=== PATIENT | female | born 1960 | race Caucasian/White ===

== ENCOUNTER 2020-03-23 17:30 | Inpatient (IN) | payer BC ==
--- NOTE | 2020-03-23 18:16 | PDOC ---
History of Present Illness - General Chief Complaint: Chest Pain Stated Complaint: CHEST PAIN/SOB/WEAKNESS/APPETITE LOSS Past History - Medical History Allergies/Adverse Reactions: Allergies Allergy/AdvReac Type Severity Reaction Status Date / Time No Known Allergies Allergy Verified 03/23/20 18:10 - Reproductive History Is Patient Now?: No - Psycho-Social/Smoking History Smoking History: Never smoked Information on smoking cessation initiated: No - Substance Abuse Hx (Audit-C & DAST Scrn) How often the patient has a drink containing alcohol: Never Score: In Men: 4 or > Positive; In Women: 3 or > Positive: 0 Screen Result (Pos requires Nsg. Audit-10AR): Negative In the last yr the pt used illegal drug/Rx for NonMed reason: No Score: Yes response is considered Positive: 0 Screen Result (Positive result requires Nsg. DAST-10): Negative *Physical Exam - Vital Signs Last Vital Signs Temp Pulse Resp BP Pulse Ox 98.8 F 90 17 108/69 96 03/23/20 17:40 03/23/20 17:40 03/23/20 17:40 03/23/20 17:40 03/23/20 17:40 ED Treatment Course - LABORATORY CBC & Chemistry Diagram: 03/23/20 20:06 03/23/20 20:06 - RADIOLOGY Radiology Studies Ordered: Category Date Time Status CHEST X-RAY PORTABLE* [RAD] Stat Radiology 03/23/20 17:57 Ordered Medical Decision Making - Medical Decision Making 03/23/20 18:14 HPI: 59yo F hx breast CA (in remission, s/p mastectomy and chemotherapy in 2002), pleural effusion 2/2 acute and chronic lung infections (s/p thoracentesis in 2018), L calf DVT (during , residual chronic swelling), PE (after long flight), not on blood thinners, and osteoporosis sent by PCP Dr Owens for fever, SOB, and CP, concerning for COVID. Pt c/o 7-10 days subjective fever, chills, SOB, pleuritic burning type substernal/L-sided nonradiating nonexertiona l CP, generalized weakness, fatigue, productive cough, myalgias, and headache. Fever temporarily relieved with tylenol and ibuprofen, last med taken was tylenol at 0600 today. Pt's family member [place] prescribed her Azithromycin (on day 6, 250), zinc, and multivitamins (vit B complex, C, D, and E). Denies travel, sick contacts, covid testing, long trips, new leg swelling or pain, numbness/tingling, focal weakness, vision changes, dizziness, abdominal pain, N/V, D/C, hx lung problems, diaphoresis, sore throat. PCP - Shad Owens (1st visit today) Layo Rasmussen - [phone] ROS: Constitutional: Positive for chills, fever, fatigue. Negative for diaphoresis. HENT: Negative for sore throat, rhinorrhea, congestion. Eyes: Negative for visual disturbance. Respiratory: Positive for shortness of breath, cough. Negative for wheezing. Cardiovascular: Positive for chest pain, chronic L leg swelling. Negative for palpitations. Gastrointestinal: Negative for abdominal pain, blood in stool, constipation, diarrhea, nausea, and vomiting. Genitourinary: Negative for dysuria, flank pain, and hematuria. Musculoskeletal: Positive for myalgias. Negative for back pain, and neck pain. Skin: Negative for rash. Neurological: Positive for headache. Negative for light-headedness, dizziness, vertigo, syncope, weakness, numbness. Psychiatric/Behavioral: Negative for behavioral problems and confusion. PE: Gen: Alert, NAD, comfortable-appearing. HEENT: PERRL, EOMI, MMM, NCAT. No conjunctival pallor. Sclera are non-icteric. CV: Regular rate and rhythm. No murmurs, rubs, or gallops. PULM: No resp distress. CTAB, no wheezes, rales, or rhonchi. Coarse cough. ABD: soft, NT/ND, no rebound tenderness or guarding, no CVA tenderness. BACK: No TTP of c/t/l-spine. No step-offs or deformities. MSK: No bony deformities. 2+ pulses in all extremities. NEURO: AAOx3. PERRL. No gross CN deficits. Strength and sensation grossly intact throughout. EXTREMITIES: No cyanosis. No clubbing. No edema. No calf tenderness. L calf>R calf (chronic per pt). PSYCH: Normal mood and thought pattern. SKIN: Warm and dry. Normal capillary refill. No rashes. No jaundice. MDM: 59yo F hx breast CA (in remission, s/p mastectomy and chemotherapy in 2002), pleural effusion 2/2 acute and chronic lung infections (s/p thoracentesis in 2019), L calf DVT (during , residual chronic swelling), PE (after long flight), not on blood thinners, and osteoporosis sent by PCP Dr Owens for fever, SOB, and CP, concerning for COVID. Hemodynamically stable, afebrile, lungs CTAB with coarse cough. Ddx: COVID, PE, ACS/IA, arrhythmia, viral URI, COPD, pancreatitis, thyroid pathology, UTI, infection, metabolic derangement, anemia -EKG: NSR, 76bpm, normal axis, normal intervals, no e/o acute ischemia -CXR: no acute pathology -CBC,CMP,Mg,Phos,Cardiac profile,Inflammatory markers,TSH, Lipase, UA/UC -Albuterol MDI x1 -Dispo: pending workup and reassessment, admit Shad Owens at bedside: admit under him 03/23/20 21:16 -prednisone -IVF 03/23/20 22:37 Updated/signed out to Dr Owens on phone. CTA reviewed and spoke with Dr Aranda: no CT e/o PE; b/l pulmonary infiltrates suspicious for COVID Discharge - Discharge Information Problems reviewed: Yes Clinical Impression/Diagnosis: SOB (shortness of breath), Fever, Chest pain, Suspected COVID-19 virus infection Condition: Stable - Admission Yes - Follow up/Referral - Patient Discharge Instructions - Post Discharge Activity
--- NOTE | 2020-03-23 18:52 | PDOC ---
Documentation entered by Vicki Lerma SCRIBE, acting as scribe for Enriqueta Drake DO. Enriqueta Drake DO: This documentation has been prepared by the Florentin leblanc Brenda, SCRIBE, under my direction and personally reviewed by me in its entirety. I confirm that the documentation accurately reflects all work, treatment, procedures, and medical decision making performed by me. Attending Attestation - Resident Resident Name: DeepalirobMildred - ED Attending Attestation I have performed the following: I have examined & evaluated the patient, The case was reviewed & discussed with the resident, I agree w/resident's findings & plan, Exceptions are as noted - HPI HPI: 03/23/20 18:23 The patient is a 59 year old female with a significant PMH of Breast CA, osteoporosis, PE and DVT who presents to the emergency department with The patient denies chest pain, shortness of breath, headache and dizziness. Denies fever, chills, nausea, vomiting, diarrhea and constipation. Denies dysuria, frequency, urgency and hematuria. Allergies: NKA Past surgical history: Social history: No reported hx of tobacco use, alcohol use or illicit drug use. PCP: Shad Owens - Physicial Exam PE: 03/23/20 18:32 GENERAL: Awake, alert, and fully oriented, in no acute distress NECK: Normal ROM, supple, no lymphadenopathy, JVD, or masses LUNGS: (+) Mildly diminshed lung sounds in right base. (+)Bronchospastic cough. No wheezes, and no crackles HEART: Regular rate and rhythm, normal S1 and S2, no murmurs, rubs or gallops ABDOMEN: Soft, nontender, normoactive bowel sounds. No guarding, no rebound. No masses EXTREMITIES: (+) Edema in bilateral lower extremities, non pitting. Varicose veins present. Normal range of motion. No clubbing or cyanosis. No cords, erythema, or tenderness NEUROLOGICAL: Cranial nerves II through XII grossly intact. Normal speech. SKIN: Warm, Dry, normal turgor, no rashes or lesions noted. - Medical Decision Making 03/23/20 18:47 a/p: 59yo female with 8-10 days of cough, cp, sob -pt has completed a course of azithro prescribed by her bother in [place] and then started another course of azithro yesterday -pt c/o chest burning when she breathes, sob, cough - nonproductive -pt states subjective fevers x 10 days -sent for eval by Dr. Shad Owens -will send labs, covid biomarkers, cxr, ekg -hx of PE, DVT both provoked -no recent travel -c/o suero, body aches -concern for covid 19 vs pna vs pleural effusion -will monitor, pt will need admission 03/23/20 18:51 Dr. Owens at the bedside and states he accepts pt to service 03/23/20 21:14 elevated dimer and inflamm markers -suspect covid, but given hx of dvt and pe and increased risk of microthrombi with covid will send for cta 03/23/20 23:35 cta neg for pe, but concerning for covid 19 pneumonitis Heart Score/ECG Review - ECG Intrepretation Comment:: 03/23/20 19:10 sinus at 72, nl axis, nl interval, no acute st/t wave findings Discharge - Discharge Information Problems reviewed: Yes Clinical Impression/Diagnosis: SOB (shortness of breath), Fever, Chest pain, Suspected COVID-19 virus infection Condition: Guarded - Admission Yes - Follow up/Referral - Patient Discharge Instructions - Post Discharge Activity
[2020-03-23] MEDS ORDERED: ALBUTEROL SO4 HFA INHALER IH ONE ×2 (19:30→20:58)
[2020-03-23 20:14] LABS: BASO % 0.2 % (0-2.0); EOS % 0.1 % (0-4.5); HEMATOCRIT 35.5 % (32.4-45.2); HEMOGLOBIN 12.4 GM/dL (10.7-15.3); LYMPH % 19.5 % (8-40); MCH 30.5 pg (25.7-33.7); MEAN CELL VOLUME 87.3 fl (80-96); MEAN PLT VOLUME 8.2 fl (7.5-11.1); MONO % 8.5 % (3.8-10.2); NEUT % 71.7 % (42.8-82.8); PLATELET COUNT 225 K/MM3 (134-434); RBC 4.06 M/mm3 (3.60-5.2); RDW 13.5 % (11.6-15.6); WHITE BLOOD COUNT 3.9 K/mm3 (4.0-10.0)
[2020-03-23 21:03] LABS: ALK PHOS 62 U/L (45-117); ANION GAP 10 MMOL/L (8-16); BILIRUBIN,TOTAL 0.5 mg/dL (0.2-1); BLOOD UREA NITROGEN 9.8 mg/dL (7-18); CALCIUM 9.2 mg/dL (8.5-10.1); CHLORIDE 103 mmol/L (98-107); CO2 24 mmol/L (21-32); CREATININE 0.8 mg/dL (0.55-1.3); GLUCOSE,RANDOM 92 mg/dL (74-106); LDH 295 U/L (84-246); LIPASE 168 U/L (73-393); MAGNESIUM 2.4 mg/dL (1.8-2.4); SGOT/AST 29 U/L (15-37); SGPT/ALT 22 U/L (13-61); SODIUM 137 mmol/L (136-145); TOT PROT 7.9 g/dl (6.4-8.2)
[2020-03-23] MEDS ORDERED: predniSONE 20 MG TABLET (UD) PO ONE (21:14)
[2020-03-23] MEDS ORDERED: SODIUM CHLORIDE 0.9% 500 ML INFUS.BAG IV ONE (21:15)
[2020-03-23] MEDS ORDERED: SODIUM CHLORIDE 1,000 ML IV SCH (21:30)
--- NOTE | 2020-03-23 22:03 | HP ---
Admitting History and Physical - Admission Chief Complaint: pt c/o cogh sob 8 days tx renaldo rubi iftikhar in [place] 8 days ago pt still c/o sob and body aches cough adsmited ? covid? d dimer elevated ct chest will be ordered. vss? no temp but wbc down cxr ?? rll infiltrate History Source: Patient Limitations to Obtaining History: No Limitations - Past Medical History Pulmonary: Yes: Other (h/o pe) ...: No - Past Surgical History Past Surgical History: Yes: None (lt brest ca withy mastectomy recontrutive sx) - Smoking History Smoking history: Never smoked - Alcohol/Substance Use Hx Alcohol Use: No History of Substance Use: reports: None - Social History Usual Living Arrangement: Yes: With Child Do you think of yourself as: Straight/Heterosexual History of Recent Travel: No Home Medications - Allergies Allergies/Adverse Reactions: Allergies Allergy/AdvReac Type Severity Reaction Status Date / Time No Known Allergies Allergy Verified 03/23/20 18:10 Family Medical History Family History: Unremarkable Review of Systems - Review of Systems Constitutional: reports: Malaise, Other (body aches sob cough) Eyes: denies: No Symptoms HENT: reports: No Symptoms Neck: reports: No Symptoms Cardiovascular: reports: No Symptoms Respiratory: reports: Cough, SOB on Exertion Gastrointestinal: reports: No Symptoms Genitourinary: reports: No Symptoms Breasts: reports: No Symptoms Reported Musculoskeletal: reports: No Symptoms Integumentary: reports: No Symptoms Neurological: reports: No Symptoms Endocrine: reports: No Symptoms Hematology/Lymphatic: reports: No Symptoms Psychiatric: reports: No Symptoms Physical Examination Vital Signs: Vital Signs Temperature 98.8 F 03/23/20 17:40 Pulse Rate 106 H 03/23/20 18:40 Respiratory Rate 17 03/23/20 17:40 Blood Pressure 108/69 03/23/20 17:40 O2 Sat by Pulse Oximetry (%) 95 03/23/20 18:40 Constitutional: Yes: Calm Eyes: Yes: WNL HENT: Yes: WNL Neck: Yes: WNL Cardiovascular: Yes: WNL Respiratory: Yes: Cough Gastrointestinal: Yes: WNL ...Rectal Exam: Yes: Deferred Renal/: Yes: WNL Breast(s): Yes: Other (lt scar) Musculoskeletal: Yes: WNL Extremities: Yes: WNL Edema: No Peripheral Pulses WNL: Yes Peripheral Pulses: Left Radial: 2+, Right Radial: 2+, Left Doralis Pedis: 2+, Right Dorsalis Pedis: 2+, Left Femoral: 2+ Integumentary: Yes: WNL Neurological: Yes: WNL ...Motor Strength: WNL Psychiatric: Yes: WNL Labs: CBC, BMP 03/23/20 20:06 03/23/20 20:06 Assessment/Plan ?covid rll ?infiltrate s/p lt mastectomy d dimer high ebc low plan ct chest luvonox bid decadron 10 daily rocephin iv iv fluids gentil tylenol for pain scale4 id consult pulm consult
[2020-03-23] MEDS ORDERED: ACETAMINOPHEN 1000 MG/100 ML VIAL (NON FORMULARY) IVPB PRN (22:12)
[2020-03-23] MEDS ORDERED: HYDROXYCHLOROQUINE SO4 200 MG TABLET (FP) PO ONE (22:45)
[2020-03-23] MEDS ORDERED: ENOXAPARIN NA (PORCINE) 40 MG/0.4 ML DISP.SYRIN SQ SCH (22:45)
[2020-03-23] MEDS ORDERED: CEFTRIAXONE 1 GM in DEXTROSE 5%-WATER - 50 ML IVPB ONE (22:45)
[2020-03-24] MEDS ORDERED: cefTRIAXone SODIUM 1 GM VIAL ONE (00:10)
[2020-03-24] MEDS ORDERED: DEXTROSE 5%-WATER - 50 ML IVPB ONE (00:10)
[2020-03-24] MEDS: SODIUM CHLORIDE 1,000 ML IV SCH ×2 (00:28→22:26)
[2020-03-24] MEDS: ENOXAPARIN NA (PORCINE) 40 MG/0.4 ML DISP.SYRIN SQ SCH ×3 (00:29→22:24)
[2020-03-24] MEDS ORDERED: PT OWN MED DRAWER 7, Y5N ONE (00:55)
[2020-03-24 05:37] VITALS: BMI 24.5
[2020-03-24 08:18] LABS: BASO % 0.2 % (0-2.0); LYMPH % 11.4 % (8-40); MCHC 35.4 g/dl (32.0-36.0); MEAN CELL VOLUME 87.7 fl (80-96); MONO % 3.1 % (3.8-10.2); NEUT % 85.3 % (42.8-82.8); PLATELET COUNT 213 K/MM3 (134-434); RBC 3.88 M/mm3 (3.60-5.2); RDW 13.2 % (11.6-15.6)
[2020-03-24 08:37] LABS: ALBUMIN 3.5 g/dl (3.4-5.0); BILIRUBIN,TOTAL 0.4 mg/dL (0.2-1); BLOOD UREA NITROGEN 13.1 mg/dL (7-18); CALCIUM 8.6 mg/dL (8.5-10.1); CREATININE 0.7 mg/dL (0.55-1.3); POTASSIUM 3.9 mmol/L (3.5-5.1); TOT PROT 7.4 g/dl (6.4-8.2)
[2020-03-24 08:50] LABS: INR 1.03 (0.83-1.09); PROTHROMBIN TIME (PATIENT) 12.1 SEC (9.7-13.0)
[2020-03-24] MEDS ORDERED: APIXABAN 5 MG TABLET PO SCH (10:00)
[2020-03-24] MEDS: PANTOPRAZOLE SODIUM 40 MG VIAL IVPUSH SCH (10:15)
[2020-03-24] MEDS: ZINC SULFATE 220 MG CAPSULE (FP) PO SCH ×2 (10:15→22:25)
[2020-03-24] MEDS: DEXAMETHASONE SOD PHOSPHATE 10 MG/1 ML VIAL IVPUSH SCH (10:15)
[2020-03-24] MEDS: CHOLECALCIFEROL (VIT D3) 1,000 UNIT (25 MCG) TABLET PO SCH (10:16)
[2020-03-24] MEDS: ASCORBIC ACID 500 MG TABLET (FP) PO SCH ×2 (10:16→22:25)
--- NOTE | 2020-03-24 10:46 | EKG ---
Test Reason : Blood Pressure : / mmHG Vent. Rate : 076 BPM Atrial Rate : 076 BPM P-R Int : 172 ms QRS Dur : 074 ms QT Int : 386 ms P-R-T Axes : 037 027 043 degrees QTc Int : 434 ms NORMAL SINUS RHYTHM NORMAL ECG NO PREVIOUS ECGS AVAILABLE Confirmed by DRU TREADWELL MD ([id number]) on 03/24/2020 10:45:48 AM Referred By: Confirmed By:DRU TREADWELL MD
--- NOTE | 2020-03-24 12:20 | CON.PULM ---
Consult Consult Specialty:: PULMONARY Referred by:: PMD Reason for Consultation:: COUGH/SOB/RULE OUT COVID - History of Present Illness Chief Complaint: COUGH/SOB/FEVER/WEAKNESS History of Present Illness: The patient is a 59 year old female with a significant PMH of Breast CA, osteoporosis, PE and DVT who presents to the emergency department with dyspnea/cough/fever. She was recently in [facility] and was given Z-iftikhar for florencia e symptoms. She has not improved and hence came to ED. She does state that her breathing is improved from yesterday. Her knowledge of Portuguese is limited and hence cannot provide a detailed history. 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 No: Cancer, COPD, O2 Dependent Gastrointestinal: No: Ascites, Cancer Hepatobiliary: No: Cirrhosis Renal/: No: Renal Inusuff Reproductive: Yes: Postmenopausal ...: No Heme/Onc: Yes: Anemia, Other (breast cancer/ details of which are lacking) - Past Surgical History Past Surgical History: Yes: None (lt brest ca withy mastectomy recontrutive sx) - Alcohol/Substance Use Hx Alcohol Use: No History of Substance Use: reports: None - Smoking History Smoking history: Never smoked Have you smoked in the past 12 months: No - Social History Usual Living Arrangement: With Spouse ADL: Independent Place of : Other History of Recent Travel: Yes ([place]) Home Medications - Allergies Allergies/Adverse Reactions: Allergies Allergy/AdvReac Type Severity Reaction Status Date / Time No Known Allergies Allergy Verified 03/23/20 18:10 Family Medical History Family History: Unremarkable Review of Systems - Review of Systems Constitutional: reports: Diaphoresis, Fever, Lethargy. denies: Night Sweats Eyes: denies: Blurred Vision HENT: denies: Difficult Swallowing Neck: denies: Decreased ROM Cardiovascular: reports: Shortness of Breath. denies: Chest Pain Respiratory: reports: Cough, Exercise Intolerance, SOB, SOB on Exertion. denies: Hemoptysis, Snoring, Wheezing Gastrointestinal: denies: Abdominal Pain Genitourinary: denies: Burning Breasts: reports: No Symptoms Reported Musculoskeletal: reports: No Symptoms Integumentary: reports: No Symptoms Neurological: reports: No Symptoms Physical Exam Vital Sings: Vital Signs Temperature 98.8 F 03/24/20 10:00 Pulse Rate 79 03/24/20 10:00 Respiratory Rate 20 03/24/20 10:00 Blood Pressure 112/54 L 03/24/20 10:00 O2 Sat by Pulse Oximetry (%) 97 03/24/20 10:00 Constitutional: Yes: Anxious Eyes: Yes: EOM Intact HENT: Yes: Normocephalic Neck: Yes: Trachea Midline Cardiovascular: Yes: S1, S2 Respiratory: Yes: Rhonchi (scattered) Gastrointestinal: Yes: Normal Bowel Sounds Edema: No Neurological: Yes: Alert Psychiatric: Yes: Alert Labs: CBC, BMP 03/24/20 07:15 03/24/20 07:15 rest reviewed Imaging - Results Chest X-ray: Report Reviewed, Image Reviewed Cat Scan: Pending EKG: Report Reviewed Problem List - Problems (1) Pneumonia Code(s): J18.9 - PNEUMONIA, UNSPECIFIED ORGANISM (2) Chest pain Code(s): R07.9 - CHEST PAIN, UNSPECIFIED (3) Fever Code(s): R50.9 - FEVER, UNSPECIFIED (4) SOB (shortness of breath) Code(s): R06.02 - SHORTNESS OF BREATH (5) Suspected COVID-19 virus infection Code(s): Z20.828 - CONTACT W AND EXPOSURE TO OTH VIRAL COMMUNICABLE DISEASES Assessment/Plan suspected covid-[address] chest may be c/w covid agree with a/c/decadron/ saturating well on nasal o2 continue to use droplet precautions/isolation for now will follow Adenike SANDERS MD
--- NOTE | 2020-03-24 13:32 | PN ---
Progress Note (short form) - Note Progress Note: ID CONSULT DICTATED COMMUNITY ACQUIRED V. ATYPICAL PNEUMONIA ? COVID-19 PNEUMONITIS AWAIT C/S, COVID-19 PCR EMPIRIC CEFTRIAXONE PULMONARY EVALUATION
[2020-03-24] MEDS ORDERED: DEXTROSE 5%-WATER 100 ML IVPB ONE (14:10)
[2020-03-24] MEDS: CEFTRIAXONE 2 GM in DEXTROSE 5%-WATER 100 ML IVPB SCH (14:16)
--- NOTE | 2020-03-24 14:28 | CONS ---
DATE OF CONSULTATION: DATE OF DICTATION: 03/24/2020 INFECTIOUS DISEASE CONSULTATION HISTORY OF PRESENT ILLNESS: The patient is a 59-year-old female who is evaluated for possible COVID-19 pneumonitis. The patient had recently traveled to [place]. She returned approximately 8 days ago. She had developed a respiratory tract illness with cough and shortness of breath. She was prescribed a Z-Momo. Despite the treatment, she still complained of shortness of breath, generalized weakness, anorexia, body aches, arthralgias, myalgias. She presented to the emergency room, where she was noted to have leukopenia. A CAT scan of the chest was performed and showed bibasilar infiltrates. At the present time, she is awake and alert. She complains of cough productive of whitish sputum. She denies any chest pain or shortness of breath. PAST MEDICAL HISTORY: Positive for breast cancer, status post mastectomy and chemotherapy, 2002; history of left pleural effusion; pulmonary embolism; left DVT. ALLERGIES: No known allergies. MEDICATIONS: Ceftriaxone, Lovenox, Protonix, Decadron, vitamin C. SOCIAL HISTORY: She resides in the community. She is a nonsmoker, nondrinker. Recent travel to [place]. SYSTEMS REVIEW: Neurologic: No loss of consciousness, seizure activity, focal weakness. Cardiac: Negative chest pain or palpitations. Respiratory: As per HPI. Gastrointestinal: Negative vomiting or diarrhea. Genitourinary: Negative for urinary tract infection. LABORATORY DATA: White count on admission 3.9, 71 neutrophils, 19 lymphocytes, 8 monocytes, hematocrit 35.5, platelets 225. Creatinine 0.8. COVID-19 PCR pending. Blood and urine cultures pending. Urine legionella antigen negative. PHYSICAL EXAMINATION: General: She is awake. She is ambulatory. She is not acutely toxic appearing and not dyspneic on room air. Vital Signs: Her O2 saturation is 97% on 2 L, nasal cannula. Previously, O2 saturation 100% on room air. Temperature 98.8, blood pressure 112/54, pulse 72, regular, respirations 20 per minute. HEENT: Sclerae are anicteric. Cardiac: Heart sounds S1-S2. Lungs: Scattered rhonchi bilaterally. Abdomen: Is soft and nontender. Extremities: Negative for edema. IMPRESSION: 1. Rule out community acquired versus atypical pneumonia. 2. Rule out COVID-19 pneumonitis. RECOMMENDATIONS: Await cultures. Await COVID-19 PCR. Continue supplemental oxygen. Empiric antibiotic coverage with ceftriaxone pending cultures. Pulmonary evaluation. Will follow. Thank you for the kind referral. DRU YANES M.D. [id number]
--- NOTE | 2020-03-24 14:55 | PN ---
Progress Note, Physician Chief Complaint: pt feels better no jt pains now vss no temp wbc up better nl po intaqke tolerated oob states has some axiety at times noted fine tremor?? - Current Medication List Current Medications: Active Medications Acetaminophen (Ofirmev Injection -) 1,000 mg IVPB Q6H PRN PRN Reason: PAIN LEVEL 1-5 Ascorbic Acid (Vitamin C -) 500 mg PO BID [facility] Last Admin: 03/24/20 10:16 Dose: 500 mg Documented by: Cholecalciferol (Vitamin D3 -) 1,000 unit PO DAILY [facility] Last Admin: 03/24/20 10:16 Dose: 1,000 unit Documented by: Dexamethasone Sodium Phosphate (Decadron Injection -) 10 mg IVPUSH DAILY [facility] Last Admin: 03/24/20 10:15 Dose: 10 mg Documented by: Enoxaparin Sodium (Lovenox -) 40 mg SQ BID [facility] Last Admin: 03/24/20 10:16 Dose: 40 mg Documented by: Sodium Chloride (Normal Saline -) 1,000 mls @ 42 mls/hr IV ASDIR [facility] Last Admin: 03/24/20 00:28 Dose: 42 mls/hr Documented by: Ceftriaxone Sodium 2 gm/ (Dextrose) 100 mls @ 200 mls/hr IVPB DAILY [facility]; Protocol Last Admin: 03/24/20 14:16 Dose: 200 mls/hr Documented by: Pantoprazole Sodium (Protonix Iv) 40 mg IVPUSH DAILY [facility] Last Admin: 03/24/20 10:15 Dose: 40 mg Documented by: Zinc Sulfate (Orazinc -) 220 mg PO BID [facility] Last Admin: 03/24/20 10:15 Dose: 220 mg Documented by: - Objective Vital Signs: Vital Signs Temperature 98.8 F 03/24/20 10:00 Pulse Rate 79 03/24/20 10:00 Respiratory Rate 20 03/24/20 10:00 Blood Pressure 112/54 L 03/24/20 10:00 O2 Sat by Pulse Oximetry (%) 97 03/24/20 10:00 Constitutional: Yes: Calm Eyes: Yes: WNL HENT: Yes: WNL Neck: Yes: WNL, Tenderness Respiratory: Yes: WNL Gastrointestinal: Yes: WNL, Tenderness, Rebound Genitourinary: Yes: WNL Breast(s): Yes: WNL Musculoskeletal: Yes: WNL Extremities: Yes: WNL Edema: No Peripheral Pulses WNL: Yes Integumentary: Yes: WNL Neurological: Yes: Tremors ...Motor Strength: WNL Labs: CBC, BMP 03/24/20 07:15 03/24/20 07:15 INR, PTT INR 1.03 (0.83-1.09) 03/24/20 07:15 Assessment/Plan u/alegionellka strep neg cont tx as is await covid result chk labs in am
[2020-03-25 08:35] LABS: HEMATOCRIT 31.4 % (32.4-45.2); HEMOGLOBIN 11.1 GM/dL (10.7-15.3); LYMPH % 9.5 % (8-40); MCH 30.8 pg (25.7-33.7); MCHC 35.4 g/dl (32.0-36.0); MEAN CELL VOLUME 87.2 fl (80-96); MEAN PLT VOLUME 8.2 fl (7.5-11.1); MONO % 8.6 % (3.8-10.2); NEUT % 81.9 % (42.8-82.8); PLATELET COUNT 282 K/MM3 (134-434); RBC 3.61 M/mm3 (3.60-5.2); RDW 13.5 % (11.6-15.6); WHITE BLOOD COUNT 7.2 K/mm3 (4.0-10.0)
[2020-03-25 08:48] LABS: BLOOD UREA NITROGEN 19.7 mg/dL (7-18); CALCIUM 8.8 mg/dL (8.5-10.1); CREATININE 0.7 mg/dL (0.55-1.3)
[2020-03-25] MEDS ORDERED: DEXTROSE 5%-WATER 100 ML IVPB ONE (09:56)
[2020-03-25] MEDS: DEXAMETHASONE SOD PHOSPHATE 10 MG/1 ML VIAL IVPUSH SCH (10:21)
[2020-03-25] MEDS: PANTOPRAZOLE SODIUM 40 MG VIAL IVPUSH SCH (10:21)
[2020-03-25] MEDS: ZINC SULFATE 220 MG CAPSULE (FP) PO SCH ×2 (10:21→21:02)
[2020-03-25] MEDS: CEFTRIAXONE 2 GM in DEXTROSE 5%-WATER 100 ML IVPB SCH (10:21)
[2020-03-25] MEDS: ASCORBIC ACID 500 MG TABLET (FP) PO SCH ×2 (10:22→21:02)
[2020-03-25] MEDS: ENOXAPARIN NA (PORCINE) 40 MG/0.4 ML DISP.SYRIN SQ SCH (10:36)
[2020-03-25] MEDS: CHOLECALCIFEROL (VIT D3) 1,000 UNIT (25 MCG) TABLET PO SCH (10:36)
--- NOTE | 2020-03-25 10:45 | PN ---
Progress Note, Physician Chief Complaint: feels better vss pos for covid - Current Medication List Current Medications: Active Medications Acetaminophen (Ofirmev Injection -) 1,000 mg IVPB Q6H PRN PRN Reason: PAIN LEVEL 1-5 Last Admin: 03/25/20 03:39 Dose: 1,000 mg Documented by: Ascorbic Acid (Vitamin C -) 500 mg PO BID [facility] Last Admin: 03/25/20 10:22 Dose: 500 mg Documented by: Cholecalciferol (Vitamin D3 -) 1,000 unit PO DAILY [facility] Last Admin: 03/25/20 10:36 Dose: 1,000 unit Documented by: Dexamethasone Sodium Phosphate (Decadron Injection -) 10 mg IVPUSH DAILY [facility] Last Admin: 03/25/20 10:21 Dose: 10 mg Documented by: Enoxaparin Sodium (Lovenox -) 40 mg SQ BID [facility] Last Admin: 03/25/20 10:36 Dose: 40 mg Documented by: Sodium Chloride (Normal Saline -) 1,000 mls @ 42 mls/hr IV ASDIR [facility] Last Admin: 03/24/20 22:26 Dose: 42 mls/hr Documented by: Ceftriaxone Sodium 2 gm/ (Dextrose) 100 mls @ 200 mls/hr IVPB DAILY [facility]; Protocol Last Admin: 03/25/20 10:21 Dose: 200 mls/hr Documented by: Pantoprazole Sodium (Protonix Iv) 40 mg IVPUSH DAILY [facility] Last Admin: 03/25/20 10:21 Dose: 40 mg Documented by: Zinc Sulfate (Orazinc -) 220 mg PO BID [facility] Last Admin: 03/25/20 10:21 Dose: 220 mg Documented by: - Objective Vital Signs: Vital Signs Temperature 98.5 F 03/25/20 08:50 Pulse Rate 87 03/25/20 08:50 Respiratory Rate 20 03/25/20 08:50 Blood Pressure 136/78 03/25/20 08:50 O2 Sat by Pulse Oximetry (%) 97 03/25/20 08:50 Constitutional: Yes: No Distress Eyes: Yes: WNL HENT: Yes: WNL Neck: Yes: WNL Cardiovascular: Yes: WNL Respiratory: Yes: WNL Gastrointestinal: Yes: WNL ...Rectal Exam: Yes: Deferred Genitourinary: Yes: WNL Breast(s): Yes: WNL, Other ([id number]) Musculoskeletal: Yes: WNL Extremities: Yes: WNL Edema: No Peripheral Pulses WNL: Yes Integumentary: Yes: WNL Neurological: Yes: WNL ...Motor Strength: WNL Psychiatric: Yes: WNL Labs: CBC, BMP 03/25/20 07:40 03/25/20 07:40 INR, PTT INR 1.03 (0.83-1.09) 03/24/20 07:15 Assessment/Plan ? d/c friday appropriate tx eliqis ect cont as is labs hkaan keep in isolation
--- NOTE | 2020-03-25 11:13 | PN ---
Progress Note (short form) - Note Progress Note: PULMONARY COVID-19 POSITIVE AWAKE/ALERT/AFEBRILE NO LONGER WITH COUGH STATES SHE FEELS IMPROVED APPEARS STABLE PATIENT SPENDS [facility] SHE HAS BEEN HERE SINCE SEPTEMBER SHE ALSO HAS H/O BREAST CA S/P MASTECTOMY/RT/CHEMO/RECONSTRUCTION VSS/AFEBRILE ANICTERIC CHEST CLEAR S1S2 BS+ NO EDEMA CRP 7.4 BUN 19 CR .7 LDH 295 D-D[address] CHEST REVIEWED HAVE CHANGED TO MEDROL/ELIQUIS EMPIRIC ANTIBIOTICS PER ID CONTINUE O2 PRN ISOLATION CONTINUES WILL FOLLOW Adenike SANDERS MD Problem List - Problems (1) Pneumonia Code(s): J18.9 - PNEUMONIA, UNSPECIFIED ORGANISM (2) Chest pain Code(s): R07.9 - CHEST PAIN, UNSPECIFIED (3) Fever Code(s): R50.9 - FEVER, UNSPECIFIED (4) SOB (shortness of breath) Code(s): R06.02 - SHORTNESS OF BREATH (5) Suspected COVID-19 virus infection Code(s): Z20.828 - CONTACT W AND EXPOSURE TO OT VIRAL COMMUNICABLE DISEASES
[2020-03-25] MEDS ORDERED: methylPREDNISolone NA SUCC 40 MG/1 ML VIAL IVPUSH ONE (11:35)
--- NOTE | 2020-03-25 16:39 | PN ---
Progress Note (short form) - Note Progress Note: feels well Vital Signs Period Temp Pulse Resp BP Sys/David Pulse Ox Last 24 Hr 98.2 F-98.5 F 87-93 18-20 127-145/73-84 97-98 cor-rrr lungs-decreased bs abd-soft,nt ext-no edema CBC, BMP 03/25/20 07:40 03/25/20 07:40 Microbiology 03/24/20 05:30 Urine - Urine Clean Catch Urine Culture - Preliminary Group D Strep Or Entero Coccus 03/23/20 20:06 Blood - Peripheral Venous Blood Culture - Preliminary NO GROWTH OBTAINED AFTER 24 HOURS, INCUBATION TO CONTINUE FOR 4 DAYS. 03/23/20 20:06 Blood - Peripheral Venous Blood Culture - Preliminary NO GROWTH OBTAINED AFTER 24 HOURS, INCUBATION TO CONTINUE FOR 4 DAYS. 03/24/20 05:30 Urine For Antigen Detection Legionella Antigen - Final 03/24/20 05:30 Urine For Antigen Detection Streptococcus pneumoniae Antigen (M - Final covid positive a/p doing well covid pneumonia not hypoxic remote history of breast cancer no headache continue present treatment son contacted- he is aware he and any family members who have been exposed to the patient need to quarantine for 14 days
[2020-03-25] MEDS: SODIUM CHLORIDE 1,000 ML IV SCH (20:45)
[2020-03-25] MEDS: APIXABAN 5 MG TABLET PO SCH (21:02)
[2020-03-25] MEDS ORDERED: ACETAMINOPHEN 500 MG TABLET (FP) PO PRN (22:59)
[2020-03-26] MEDS ORDERED: ALBUTEROL SO4 HFA INHALER IH PRN (07:09)
[2020-03-26 08:16] LABS: EOS % 0.1 % (0-4.5); HEMATOCRIT 32.1 % (32.4-45.2); LYMPH % 10.7 % (8-40); MCH 29.6 pg (25.7-33.7); MCHC 34.1 g/dl (32.0-36.0); MEAN CELL VOLUME 86.7 fl (80-96); MEAN PLT VOLUME 7.4 fl (7.5-11.1); NEUT % 81.2 % (42.8-82.8); PLATELET COUNT 337 K/MM3 (134-434); RDW 13.3 % (11.6-15.6); WHITE BLOOD COUNT 8.6 K/mm3 (4.0-10.0)
[2020-03-26 08:41] LABS: BLOOD UREA NITROGEN 20.2 mg/dL (7-18); CALCIUM 9.1 mg/dL (8.5-10.1); CREATININE 0.7 mg/dL (0.55-1.3)
[2020-03-26] MEDS ORDERED: DEXTROSE 5%-WATER 100 ML IVPB ONE (09:12)
[2020-03-26] MEDS: methylPREDNISolone NA SUCC 40 MG/1 ML VIAL IVPUSH SCH ×2 (10:15→21:05)
[2020-03-26] MEDS: CEFTRIAXONE 2 GM in DEXTROSE 5%-WATER 100 ML IVPB SCH (10:15)
[2020-03-26] MEDS: CHOLECALCIFEROL (VIT D3) 1,000 UNIT (25 MCG) TABLET PO SCH (10:16)
[2020-03-26] MEDS: PANTOPRAZOLE SODIUM 40 MG VIAL IVPUSH SCH (10:16)
[2020-03-26] MEDS: ASCORBIC ACID 500 MG TABLET (FP) PO SCH ×2 (10:16→21:05)
[2020-03-26] MEDS: APIXABAN 5 MG TABLET PO SCH ×2 (10:16→21:05)
[2020-03-26] MEDS: ZINC SULFATE 220 MG CAPSULE (FP) PO SCH ×2 (10:16→21:06)
[2020-03-26] MEDS ORDERED: BUDESONIDE/FORMETEROL FUMARATE 160/4.5 mcg INHALER IH ONE (11:48)
--- NOTE | 2020-03-26 11:51 | PN ---
Progress Note (short form) - Note Progress Note: PULMONARY COVID-19 POSITIVE AWAKE/ALERT/AFEBRILE NO LONGER WITH COUGH STATES SHE FEELS IMPROVED APPEARS STABLE VSS/AFEBRILE ANICTERIC CHEST CLEAR S1S2 BS+ NO EDEMA INFLAMMATORY MARKERS PREVIOUSLY NOTED CT CHEST REVIEWED HAVE CHANGED TO MEDROL/ELIQUIS WOULD D/C MEDROL IN AM AND CHANGE TO PREDNISONE 40 MG DAILY EMPIRIC ANTIBIOTICS PER ID CONTINUE O2 PRN ISOLATION CONTINUES SHOULD BE OK FOR DISCHARGE ON FRIDAY WILL FOLLOW Adenike SANDERS MD Problem List - Problems (1) Pneumonia Code(s): J18.9 - PNEUMONIA, UNSPECIFIED ORGANISM (2) Chest pain Code(s): R07.9 - CHEST PAIN, UNSPECIFIED (3) Fever Code(s): R50.9 - FEVER, UNSPECIFIED (4) SOB (shortness of breath) Code(s): R06.02 - SHORTNESS OF BREATH (5) Suspected COVID-19 virus infection Code(s): Z20.828 - CONTACT W AND EXPOSURE TO OTH VIRAL COMMUNICABLE DISEASES
--- NOTE | 2020-03-26 11:56 | PN ---
Progress Note (short form) - Note Progress Note: feels well good appetite today taste is back Vital Signs Period Temp Pulse Resp BP Sys/David Pulse Ox Last 24 Hr 98.1 F-98.4 F 71-83 20-20 141-145/70-73 93-96 cor-rrr lungs clear abd soft,nt ext no edema CBC, BMP 03/26/20 07:39 03/26/20 07:39 Microbiology 03/23/20 20:06 Blood - Peripheral Venous Blood Culture - Preliminary NO GROWTH OBTAINED AFTER 48 HOURS, INCUBATION TO CONTINUE FOR 3 DAYS. 03/23/20 20:06 Blood - Peripheral Venous Blood Culture - Preliminary NO GROWTH OBTAINED AFTER 48 HOURS, INCUBATION TO CONTINUE FOR 3 DAYS. 03/24/20 05:30 Urine - Urine Clean Catch Urine Culture - Preliminary Group D Strep Or Entero Coccus 03/24/20 05:30 Urine For Antigen Detection Legionella Antigen - Final 03/24/20 05:30 Urine For Antigen Detection Streptococcus pneumoniae Antigen (M - Final covid positive a/p doing well covid pneumonia-day #4 rocephin, can switch to ceftin to finish 7 days not hypoxic remote history of breast cancer now states nephew came to visit he had pneumonia! son is aware of diagnosis and need to quarantine she is concerned- they have only one bathroom in the apt refer to [facility] in am prior to d/c home if okay with pulmonary tried to reach son to update- unable to leave message on phone
--- NOTE | 2020-03-26 14:10 | PN ---
Progress Note, Physician History of Present Illness: comfortable vss id and pulm f/u appretciated cont tx as is - Current Medication List Current Medications: Active Medications Acetaminophen (Tylenol -) 1,000 mg PO Q6H PRN PRN Reason: PAIN LEVEL 1-5 Albuterol Sulfate (Ventolin Hfa Inhaler -) 2 puff IH Q4H PRN PRN Reason: SHORT OF BREATH/WHEEZING Apixaban (Eliquis -) 5 mg PO BID [facility] Last Admin: 03/26/20 10:16 Dose: 5 mg Documented by: Ascorbic Acid (Vitamin C -) 500 mg PO BID [facility] Last Admin: 03/26/20 10:16 Dose: 500 mg Documented by: Cefuroxime Axetil (Ceftin -) 500 mg PO BID [facility] Cholecalciferol (Vitamin D3 -) 1,000 unit PO DAILY [facility] Last Admin: 03/26/20 10:16 Dose: 1,000 unit Documented by: Sodium Chloride (Normal Saline -) 1,000 mls @ 42 mls/hr IV ASDIR [facility] Last Admin: 03/24/20 22:26 Dose: 42 mls/hr Documented by: Methylprednisolone Sodium Succinate (Solu-Medrol -) 40 mg IVPUSH BID [facility] Last Admin: 03/26/20 10:15 Dose: 40 mg Documented by: Pantoprazole Sodium (Protonix Iv) 40 mg IVPUSH DAILY [facility] Last Admin: 03/26/20 10:16 Dose: 40 mg Documented by: Zinc Sulfate (Orazinc -) 220 mg PO BID [facility] Last Admin: 03/26/20 10:16 Dose: 220 mg Documented by: - Objective Vital Signs: Vital Signs Temperature 98.1 F 03/26/20 06:00 Pulse Rate 71 03/26/20 06:00 Respiratory Rate 20 03/26/20 06:00 Blood Pressure 141/73 03/26/20 06:00 O2 Sat by Pulse Oximetry (%) 96 03/26/20 06:00 Labs: CBC, BMP 03/26/20 07:39 03/26/20 07:39 INR, PTT INR 1.03 (0.83-1.09) 03/24/20 07:15
[2020-03-26] MEDS: SODIUM CHLORIDE 1,000 ML IV SCH (22:30)
[2020-03-27 08:59] LABS: HEMATOCRIT 32.7 % (32.4-45.2); HEMOGLOBIN 11.3 GM/dL (10.7-15.3); LYMPH % 13.1 % (8-40); MCH 29.9 pg (25.7-33.7); MCHC 34.6 g/dl (32.0-36.0); MEAN CELL VOLUME 86.3 fl (80-96); MEAN PLT VOLUME 7.4 fl (7.5-11.1); MONO % 6.6 % (3.8-10.2); NEUT % 80.3 % (42.8-82.8); PLATELET COUNT 356 K/MM3 (134-434); RDW 13.4 % (11.6-15.6)
[2020-03-27 09:28] LABS: BLOOD UREA NITROGEN 19.5 mg/dL (7-18); CALCIUM 8.9 mg/dL (8.5-10.1); CREATININE 0.8 mg/dL (0.55-1.3)
--- NOTE | 2020-03-27 09:59 | PN ---
Progress Note, Physician History of Present Illness: spoke to son pt came from [place] sep 2019 was [place] 5 mths? than developed cough c p w cough 31 wk prior son lemuel in [place] gave her vits and z iftikhar to take than got worst came to [place] day of admisstion now feels better but still c/o chest pain with coughing only and with deep breaths vss - Current Medication List Current Medications: Active Medications Acetaminophen (Tylenol -) 1,000 mg PO Q6H PRN PRN Reason: PAIN LEVEL 1-5 Albuterol Sulfate (Ventolin Hfa Inhaler -) 2 puff IH Q4H PRN PRN Reason: SHORT OF BREATH/WHEEZING Apixaban (Eliquis -) 5 mg PO BID [facility] Last Admin: 03/26/20 21:05 Dose: 5 mg Documented by: Ascorbic Acid (Vitamin C -) 500 mg PO BID [facility] Last Admin: 03/26/20 21:05 Dose: 500 mg Documented by: Cefuroxime Axetil (Ceftin -) 500 mg PO BID [facility] Cholecalciferol (Vitamin D3 -) 1,000 unit PO DAILY [facility] Last Admin: 03/26/20 10:16 Dose: 1,000 unit Documented by: Methylprednisolone Sodium Succinate (Solu-Medrol -) 40 mg IVPUSH BID [facility] Last Admin: 03/26/20 21:05 Dose: 40 mg Documented by: Pantoprazole Sodium (Protonix Iv) 40 mg IVPUSH DAILY [facility] Last Admin: 03/26/20 10:16 Dose: 40 mg Documented by: Zinc Sulfate (Orazinc -) 220 mg PO BID [facility] Last Admin: 03/26/20 21:06 Dose: 220 mg Documented by: - Objective Vital Signs: Vital Signs Temperature 97.7 F 03/27/20 05:15 Pulse Rate 68 03/27/20 05:15 Respiratory Rate 20 03/27/20 05:15 Blood Pressure 116/66 03/27/20 05:15 O2 Sat by Pulse Oximetry (%) 97 03/27/20 05:15 Constitutional: Yes: No Distress, Anxious Eyes: Yes: WNL HENT: Yes: WNL Neck: Yes: WNL Cardiovascular: Yes: WNL Respiratory: Yes: Cough Gastrointestinal: Yes: WNL ...Rectal Exam: Yes: Deferred Genitourinary: Yes: WNL Breast(s): Yes: WNL Musculoskeletal: Yes: WNL Extremities: Yes: WNL Edema: No Peripheral Pulses WNL: Yes Integumentary: Yes: WNL Neurological: Yes: WNL ...Motor Strength: WNL Psychiatric: Yes: WNL Labs: CBC, BMP 03/27/20 08:40 03/27/20 08:40 INR, PTT INR 1.03 (0.83-1.09) 03/24/20 07:15 Assessment/Plan ? d/c in am tapered doses steroids inhalers cough suppresents tylenol for pain steroids only given not more than 12 days post covid?
[2020-03-27] MEDS: methylPREDNISolone NA SUCC 40 MG/1 ML VIAL IVPUSH SCH ×2 (10:08→23:00)
[2020-03-27] MEDS: PANTOPRAZOLE SODIUM 40 MG VIAL IVPUSH SCH (10:08)
[2020-03-27] MEDS: CHOLECALCIFEROL (VIT D3) 1,000 UNIT (25 MCG) TABLET PO SCH (10:09)
[2020-03-27] MEDS: CEFUROXIME AXETIL 500 MG TABLET PO SCH ×2 (10:09→23:00)
[2020-03-27] MEDS: APIXABAN 5 MG TABLET PO SCH ×2 (10:09→22:59)
[2020-03-27] MEDS: ZINC SULFATE 220 MG CAPSULE (FP) PO SCH ×2 (10:09→23:00)
[2020-03-27] MEDS: ASCORBIC ACID 500 MG TABLET (FP) PO SCH ×2 (10:09→22:59)
[2020-03-27] MEDS ORDERED: ACETAMINOPHEN 325 MG TABLET (FP) PO PRN (10:14)
--- NOTE | 2020-03-27 16:47 | PN ---
Progress Note (short form) - Note Progress Note: PULMONARY States breathing is improving. Cough worse today. No fevers. Vital Signs Period Temp Pulse Resp BP Sys/David Pulse Ox Last 24 Hr 97.6 F-98.5 F 68-73 20-20 116-146/65-86 96-98 Gen: NAD at rest Heart: RRR Lung: decreased breath sounds at the bases Abd: soft, nontender Ext: no edema CBC, BMP 03/27/20 08:40 03/27/20 08:40 Active Medications Acetaminophen (Tylenol -) 1,000 mg PO Q6H PRN PRN Reason: PAIN LEVEL 1-5 Acetaminophen (Tylenol -) 650 mg PO Q4H PRN PRN Reason: FOR CHEST PAIN Albuterol Sulfate (Ventolin Hfa Inhaler -) 2 puff IH Q4H PRN PRN Reason: SHORT OF BREATH/WHEEZING Apixaban (Eliquis -) 5 mg PO BID [facility] Last Admin: 03/27/20 10:09 Dose: 5 mg Documented by: Ascorbic Acid (Vitamin C -) 500 mg PO BID [facility] Last Admin: 03/27/20 10:09 Dose: 500 mg Documented by: Cefuroxime Axetil (Ceftin -) 500 mg PO BID [facility] Last Admin: 03/27/20 10:09 Dose: 500 mg Documented by: Cholecalciferol (Vitamin D3 -) 1,000 unit PO DAILY [facility] Last Admin: 03/27/20 10:09 Dose: 1,000 unit Documented by: Guaifenesin (Robitussin Dm -) 10 ml PO Q4H PRN PRN Reason: COUGH Methylprednisolone Sodium Succinate (Solu-Medrol -) 40 mg IVPUSH BID [facility] Last Admin: 03/27/20 10:08 Dose: 40 mg Documented by: Pantoprazole Sodium (Protonix Iv) 40 mg IVPUSH DAILY [facility] Last Admin: 03/27/20 10:08 Dose: 40 mg Documented by: Zinc Sulfate (Orazinc -) 220 mg PO BID [facility] Last Admin: 03/27/20 10:09 Dose: 220 mg Documented by: A/P COVID19 Pneumonitis Breast Ca h/o PE/DVT - on empiric anticoagulation - can change steroids to PO prednisone 40mg daily - O2 to keep SpO2 >90% - trend inflammatory markers - can d/c in AM if continues to improve
[2020-03-28] MEDS: methylPREDNISolone NA SUCC 40 MG/1 ML VIAL IVPUSH SCH (09:35)
[2020-03-28] MEDS: CEFUROXIME AXETIL 500 MG TABLET PO SCH ×2 (09:35→21:32)
[2020-03-28] MEDS: ZINC SULFATE 220 MG CAPSULE (FP) PO SCH ×2 (09:35→21:33)
[2020-03-28] MEDS: APIXABAN 5 MG TABLET PO SCH ×2 (09:35→21:33)
[2020-03-28] MEDS: ASCORBIC ACID 500 MG TABLET (FP) PO SCH ×2 (09:35→21:33)
[2020-03-28] MEDS: CHOLECALCIFEROL (VIT D3) 1,000 UNIT (25 MCG) TABLET PO SCH (09:36)
[2020-03-28] MEDS: guaiFENesin/D-METHORPHAN HB 10 ML UNIT-DOSE CUPS PO PRN ×2 (09:36→21:33)
[2020-03-28] MEDS: PANTOPRAZOLE SODIUM 40 MG VIAL IVPUSH SCH (09:36)
--- NOTE | 2020-03-28 10:17 | PN ---
Progress Note, Physician Chief Complaint: cough no change vss lungs slight improvment air movmeant ni bm good apetitoob - Current Medication List Current Medications: Active Medications Acetaminophen (Tylenol -) 1,000 mg PO Q6H PRN PRN Reason: PAIN LEVEL 1-5 Acetaminophen (Tylenol -) 650 mg PO Q4H PRN PRN Reason: FOR CHEST PAIN Albuterol Sulfate (Ventolin Hfa Inhaler -) 2 puff IH Q4H PRN PRN Reason: SHORT OF BREATH/WHEEZING Apixaban (Eliquis -) 5 mg PO BID [facility] Last Admin: 03/28/20 09:35 Dose: 5 mg Documented by: Ascorbic Acid (Vitamin C -) 500 mg PO BID [facility] Last Admin: 03/28/20 09:35 Dose: 500 mg Documented by: Cefuroxime Axetil (Ceftin -) 500 mg PO BID [facility] Last Admin: 03/28/20 09:35 Dose: 500 mg Documented by: Cholecalciferol (Vitamin D3 -) 1,000 unit PO DAILY [facility] Last Admin: 03/28/20 09:36 Dose: 1,000 unit Documented by: Guaifenesin (Robitussin Dm -) 10 ml PO Q4H PRN PRN Reason: COUGH Last Admin: 03/28/20 09:36 Dose: 10 ml Documented by: Methylprednisolone Sodium Succinate (Solu-Medrol -) 40 mg IVPUSH BID [facility] Last Admin: 03/28/20 09:35 Dose: 40 mg Documented by: Pantoprazole Sodium (Protonix Iv) 40 mg IVPUSH DAILY [facility] Last Admin: 03/28/20 09:36 Dose: 40 mg Documented by: Zinc Sulfate (Orazinc -) 220 mg PO BID [facility] Last Admin: 03/28/20 09:35 Dose: 220 mg Documented by: - Objective Vital Signs: Vital Signs Temperature 98.4 F 03/28/20 05:31 Pulse Rate 63 03/28/20 05:31 Respiratory Rate 20 03/28/20 05:31 Blood Pressure 119/60 03/28/20 05:31 O2 Sat by Pulse Oximetry (%) 98 03/28/20 05:31 Constitutional: Yes: No Distress Eyes: Yes: WNL HENT: Yes: WNL Neck: Yes: WNL Cardiovascular: Yes: WNL Respiratory: Yes: Rhonchi Gastrointestinal: Yes: WNL, Tenderness, Rebound Genitourinary: Yes: WNL Breast(s): Yes: WNL Musculoskeletal: Yes: WNL Extremities: Yes: WNL Edema: No Peripheral Pulses WNL: Yes Integumentary: Yes: WNL Neurological: Yes: WNL ...Motor Strength: WNL Psychiatric: Yes: WNL Labs: CBC, BMP 03/27/20 08:40 03/27/20 08:40 INR, PTT INR 1.03 (0.83-1.09) 03/24/20 07:15 Assessment/Plan pulse oxi krrp above 90 ?d/g in an if better swich all mrds to po not to be done labs
--- NOTE | 2020-03-28 10:30 | PN ---
Progress Note, Physician - Current Medication List Current Medications: Active Medications Acetaminophen (Tylenol -) 1,000 mg PO Q6H PRN PRN Reason: PAIN LEVEL 1-5 Acetaminophen (Tylenol -) 650 mg PO Q4H PRN PRN Reason: FOR CHEST PAIN Albuterol Sulfate (Ventolin Hfa Inhaler -) 2 puff IH Q4H PRN PRN Reason: SHORT OF BREATH/WHEEZING Apixaban (Eliquis -) 5 mg PO BID [facility] Last Admin: 03/28/20 09:35 Dose: 5 mg Documented by: Ascorbic Acid (Vitamin C -) 500 mg PO BID [facility] Last Admin: 03/28/20 09:35 Dose: 500 mg Documented by: Cefuroxime Axetil (Ceftin -) 500 mg PO BID [facility] Last Admin: 03/28/20 09:35 Dose: 500 mg Documented by: Cholecalciferol (Vitamin D3 -) 1,000 unit PO DAILY [facility] Last Admin: 03/28/20 09:36 Dose: 1,000 unit Documented by: Guaifenesin (Robitussin Dm -) 10 ml PO Q4H PRN PRN Reason: COUGH Last Admin: 03/28/20 09:36 Dose: 10 ml Documented by: Pantoprazole Sodium (Protonix -) 40 mg PO DAILY [facility] Prednisone (Deltasone -) 40 mg PO DAILY [facility] Zinc Sulfate (Orazinc -) 220 mg PO BID [facility] Last Admin: 03/28/20 09:35 Dose: 220 mg Documented by: - Objective Vital Signs: Vital Signs Temperature 98.4 F 03/28/20 05:31 Pulse Rate 63 03/28/20 05:31 Respiratory Rate 20 03/28/20 05:31 Blood Pressure 119/60 03/28/20 05:31 O2 Sat by Pulse Oximetry (%) 98 03/28/20 05:31 Labs: CBC, BMP 03/27/20 08:40 03/27/20 08:40 INR, PTT INR 1.03 (0.83-1.09) 03/24/20 07:15 Assessment/Plan A/P COVID19 Pneumonitis Breast Ca h/o PE/DVT - on empiric anticoagulation - can change steroids to PO prednisone 40mg daily - O2 to keep SpO2 >90% - trend inflammatory markers
[2020-03-28] MEDS: ALBUTEROL SO4 HFA INHALER IH PRN (18:08)
--- NOTE | 2020-03-29 08:09 | PN ---
Progress Note, Physician History of Present Illness: PULMPNARY ALERT,C/O COUGH,OCC CHEST TIGHTNESS,DYSPNEA IMPROVING - Current Medication List Current Medications: Active Medications Acetaminophen (Tylenol -) 1,000 mg PO Q6H PRN PRN Reason: PAIN LEVEL 1-5 Acetaminophen (Tylenol -) 650 mg PO Q4H PRN PRN Reason: FOR CHEST PAIN Albuterol Sulfate (Ventolin Hfa Inhaler -) 2 puff IH Q4H PRN PRN Reason: SHORT OF BREATH/WHEEZING Last Admin: 03/28/20 18:08 Dose: 2 puff Documented by: Apixaban (Eliquis -) 5 mg PO BID [facility] Last Admin: 03/28/20 21:33 Dose: 5 mg Documented by: Ascorbic Acid (Vitamin C -) 500 mg PO BID [facility] Last Admin: 03/28/20 21:33 Dose: 500 mg Documented by: Cefuroxime Axetil (Ceftin -) 500 mg PO BID [facility] Last Admin: 03/28/20 21:32 Dose: 500 mg Documented by: Cholecalciferol (Vitamin D3 -) 1,000 unit PO DAILY [facility] Last Admin: 03/28/20 09:36 Dose: 1,000 unit Documented by: Guaifenesin (Robitussin Dm -) 10 ml PO Q4H PRN PRN Reason: COUGH Last Admin: 03/28/20 21:33 Dose: 10 ml Documented by: Pantoprazole Sodium (Protonix -) 40 mg PO DAILY [facility] Prednisone (Deltasone -) 40 mg PO DAILY [facility] Zinc Sulfate (Orazinc -) 220 mg PO BID [facility] Last Admin: 03/28/20 21:33 Dose: 220 mg Documented by: - Objective Vital Signs: Vital Signs Temperature 97.8 F 03/28/20 20:38 Pulse Rate 67 03/28/20 20:38 Respiratory Rate 20 03/28/20 20:38 Blood Pressure 135/56 L 03/28/20 20:38 O2 Sat by Pulse Oximetry (%) 94 L 03/28/20 21:00 Constitutional: Yes: Well Nourished, Calm Eyes: Yes: WNL HENT: Yes: WNL Neck: Yes: WNL Cardiovascular: Yes: Regular Rate and Rhythm, S1, S2 Respiratory: Yes: CTA Bilaterally Gastrointestinal: Yes: Normal Bowel Sounds, Soft Extremities: Yes: WNL Edema: No Labs: CBC, BMP Laboratory Tests 03/28/20 13:30 D-Dimer 653 H Assessment/Plan A/P COVID19 Pneumonitis Breast Ca h/o PE/DVT - on empiric anticoagulation - PO prednisone 40mg daily - O2 to keep SpO2 >90% - trend inflammatory markers - Symbicort 160/4.[address] CONTRERAS
[2020-03-29] MEDS ORDERED: PT OWN MED DRAWER 7, Y5N ONE (09:26)
[2020-03-29] MEDS: CHOLECALCIFEROL (VIT D3) 1,000 UNIT (25 MCG) TABLET PO SCH (09:29)
[2020-03-29] MEDS: ASCORBIC ACID 500 MG TABLET (FP) PO SCH (09:29)
[2020-03-29] MEDS: ZINC SULFATE 220 MG CAPSULE (FP) PO SCH (09:29)
[2020-03-29] MEDS: APIXABAN 5 MG TABLET PO SCH (09:29)
[2020-03-29] MEDS: CEFUROXIME AXETIL 500 MG TABLET PO SCH (09:29)
[2020-03-29] MEDS: ALBUTEROL SO4 HFA INHALER IH PRN (09:29)
[2020-03-29] MEDS: guaiFENesin/D-METHORPHAN HB 10 ML UNIT-DOSE CUPS PO PRN (09:29)
[2020-03-29] MEDS ORDERED: PANTOPRAZOLE 40 MG TABLET PO SCH (10:00)
[2020-03-29] MEDS ORDERED: predniSONE 20 MG TABLET (UD) PO SCH (10:00)
[2020-03-29] MEDS ORDERED: BUDESONIDE/FORMETEROL FUMARATE 160/4.5 mcg INHALER IH SCH (13:15)
--- NOTE | 2020-03-29 14:31 | DS ---
Physical Examination Vital Signs: Vital Signs Temperature 98 F 03/29/20 10:00 Pulse Rate 60 03/29/20 10:00 Respiratory Rate 18 03/29/20 10:00 Blood Pressure 126/80 03/29/20 10:00 O2 Sat by Pulse Oximetry (%) 96 03/29/20 10:00 Constitutional: Yes: No Distress Eyes: Yes: WNL HENT: Yes: WNL Neck: Yes: WNL Cardiovascular: Yes: WNL Respiratory: Yes: WNL Gastrointestinal: Yes: WNL ...Rectal Exam: Yes: Deferred Renal/: Yes: WNL Breast(s): Yes: WNL Musculoskeletal: Yes: WNL Extremities: Yes: WNL Edema: No Peripheral Pulses WNL: Yes Integumentary: Yes: WNL Neurological: Yes: WNL ...Motor Strength: WNL Psychiatric: Yes: WNL Labs: CBC, BMP 03/27/20 08:40 03/27/20 08:40 Discharge Summary Problems reviewed: Yes Reason For Visit: SUSPECTED COVID-19 VIRUS,FEVER,SOB,CHEST PAIN Current Active Problems Chest pain (Acute) Fever (Acute) Pneumonia (Acute) SOB (shortness of breath) (Acute) Suspected COVID-19 virus infection (Acute) Condition: Guarded - Instructions Diet, Activity, Other Instructions: po steroids inhalers eliqis po robitusin vit c zinc vit Referrals: Shad [facility] [Primary Care Provider] - Disposition: HOME
[2020-03-29 14:55] VITALS: BP 113/64; PULSE 76; TEMP 97.9
== END 2020-03-29 16:03 | disposition home or self-care (01) | DRG 137 ==
LOC: JER 17:30 → JERBED 18:46 → J6S 23:18
PROVIDERS: ADMIT Family Medicine; ATTEND Family Medicine
DX: U07.1 COVID-19 (principal); J12.89 Other viral pneumonia; R07.89 Other chest pain; R06.02 Shortness of breath; M81.0 Age-related osteoporosis without current pathological fracture; R79.1 Abnormal coagulation profile; Z85.3 Personal history of malignant neoplasm of breast; Z86.711 Personal history of pulmonary embolism; Z86.718 Personal history of other venous thrombosis and embolism
CPT/HCPCS: 36415; 71045-TC-FY; 71275-TC; 80048; 80053; 82550; 82728; 83605; 83615; 83690; 83735; 84100; 84443; 84484; 85025; 85379; 85610; 86140; 87040; 87086; 87186; 87899; 93005; 93010; 99285-25; J0131; J1100; Q9967; U0003